=== PATIENT | female | born 1950 | race Hispanic/Latino ===

== ENCOUNTER 2018-01-31 16:23 | Observation (INO) | payer MEDICARE ==
[~2018-01-31] VITALS: Ht 157.5 cm; Wt 60.7 kg
[~2018-01-31 16:23] MED LIST: ASPI-1197 PO; CHOL200016 PO; GLIP10TA PO; INSLAN SQ; IRON1CAP31 PO; METF500T6 PO; OMEG100014 PO
[2018-01-31 17:16] LABS: BASOPHILS % (AUTO) 0.5 % (0.0-5.0); EOSINOPHILS % (AUTO) 1.7 % (0.0-8.0); LYMPHOCYTES % (AUTO) 16.3 % (21.0-51.0); MEAN CORPUSCULAR HEMOGLOBIN 31.5 pg (27.0-33.0); MEAN CORPUSCULAR HGB CONC 35.4 g/dL (32.0-36.0); MEAN CORPUSCULAR VOLUME 88.8 fL (79-99); NEUTROPHILS % (AUTO) 71.5 % (40.0-77.0); PLATELET COUNT (AUTO) 89 K/uL (130-400); RED CELL DISTRIBUTION WIDTH 14.6 % (11.0-15.5); WHITE BLOOD COUNT (AUTO) 7.3 K/uL (4.8-10.8)
[2018-01-31 17:26] LABS: CREATININE 0.6 mg/dL (0.5-1.5); POTASSIUM 3.7 mmol/L (3.5-5.1)
[2018-01-31 17:29] LABS: INR 1.07 (0.85-1.15); PARTIAL THROMBOPLASTIN TIME 30.4 SEC (26.3-35.5); PROTHROMBIN TIME 11.2 SEC (9.6-11.6)
[2018-01-31] MEDS ORDERED: ONDANSETRON HCL 4 MG/2 ML VIAL ONE (17:41)
[2018-01-31 17:42] LABS: ALBUMIN 3.6 g/dL (3.5-5.0); BILIRUBIN,TOTAL 0.7 mg/dL (0.2-1.0); CREATINE KINASE MB 0.7 ng/mL (0.5-3.6); TOTAL PROTEIN, SERUM 7.2 g/dL (6.0-8.3)
[2018-01-31] MEDS ORDERED: MORPHINE SULFATE 4 MG/1ML SYG ONE ×2 (17:42→19:45)
[2018-01-31] MEDS ORDERED: IOPAMIDOL-370 75 ML VIAL IV ONE (17:46)
[2018-01-31 19:01] LABS: APPEARANCE,URINE Clear (CLEAR); BILIRUBIN,URINE Negative (NEGATIVE); COLOR,URINE Yellow (YELLOW); GLUCOSE, URINE (UA) Negative (NEGATIVE); KETONES,URINE Negative (NEGATIVE); LEUKOCYTE ESTERASE ,URINE Trace (NEGATIVE); NITRATE,URINE Negative (NEGATIVE); OCCULT BLOOD,URINE Negative (NEGATIVE); PH,URINE 7.5 (5.0-8.0); PROTEIN,URINE Negative (NEGATIVE); UROBILINOGEN,URINE 0.2 mg/dL (0.2-1.0)
[2018-01-31] MEDS: ASPIRIN 81MG TAB.CHEW PO SCH (19:41)
[2018-01-31 19:43] LABS: RBC,URINE 0-1 /HPF (0-1)
[2018-01-31] MEDS ORDERED: MORPHINE SULFATE 4 MG/1ML SYG IVP PRN (19:45)
[2018-01-31 19:46] LABS: BACTERIA,URINE Rare /HPF (None Seen)
[2018-01-31 19:47] LABS: SQUAMOUS EPITHELIAL CELL,UR Few /HPF (0-2)
[2018-01-31] MEDS: NITROGLYCERIN 1GM/1 INCH PACKET TD SCH ×2 (20:00→22:00)
[2018-01-31] MEDS ORDERED: NITROGLYCERIN 1GM/1 INCH PACKET TD ONE (21:10)
[2018-01-31] MEDS ORDERED: ASPIRIN 81MG TAB.CHEW ONE (21:11)
[2018-01-31] MEDS ORDERED: POTASSIUM CHLORIDE 10% ELIXIR 20 MEQ/15 ML UDCUP PO PRN (22:00)
[2018-01-31] MEDS ORDERED: LIDOCAINE HCL-MPF 1% 2ML VIAL IVP PRN (22:00)
[2018-01-31] MEDS ORDERED: ONDANSETRON HCL 4 MG/2 ML VIAL IV PRN (22:00)
[2018-01-31] MEDS ORDERED: ACETAMINOPHEN 325 MG TAB PO PRN ×2 (22:00)
[2018-01-31] MEDS ORDERED: POTASSIUM CHLORIDE 20MEQ/100ML 100 ML IV PRN (22:00)
[2018-01-31] MEDS ORDERED: CEFTRIAXONE SODIUM 1 GM IVP SCH (22:00)
[2018-01-31] MEDS ORDERED: DEXTROSE 50%-WATER 50 ML DISP.SYRIN IV PRN (22:00)
[2018-01-31] MEDS ORDERED: POTASSIUM CHLORIDE 20 MEQ ERTAB PO PRN (22:00)
[2018-01-31] MEDS ORDERED: ZOLPIDEM TARTRATE 5 MG TAB PO PRN (22:00)
[2018-01-31] MEDS ORDERED: GLUCAGON 1MG KIT 1 MG ML IM PRN (22:00)
[2018-01-31] MEDS ORDERED: CEFTRIAXONE 1GM/D5W 50ML 50 ML IV SCH (22:00)
[2018-01-31] MEDS ORDERED: NITROGLYCERIN 0.4 MG SL TAB SL PRN (22:00)
[2018-01-31] MEDS ORDERED: LACTULOSE 20 GM/30 ML UDCUP PO PRN (22:00)
[2018-01-31 22:05] VITALS: BP 122/67
[2018-01-31 23:37] VITALS: BP 104/58
[2018-02-01] MEDS ORDERED: CIPR-1 PO (00:13)
[2018-02-01] MEDS ORDERED: INSLAN SQ (00:13)
[2018-02-01] MEDS ORDERED: AEC81 PO (00:13)
[2018-02-01] MEDS ORDERED: INSU100V SQ (00:13)
[2018-02-01] MEDS ORDERED: INSU100V IV (00:13)
[2018-02-01] MEDS ORDERED: METF500T6 PO (00:13)
[2018-02-01 01:21] LABS: CREATINE KINASE MB 0.6 ng/mL (0.5-3.6); CREATINE KINASE, TOTAL 57 U/L (21-232); MYOGLOBIN 24 ng/mL (10-92); TROPONIN I < 0.04 ng/mL (0.00-0.06)
[2018-02-01 03:53] VITALS: BP 84/52
[2018-02-01] MEDS: NITROGLYCERIN 1GM/1 INCH PACKET TD SCH ×2 (04:00→06:00)
[2018-02-01 05:42] LABS: HEMATOCRIT 30.4 % (36-48); MEAN CORPUSCULAR HEMOGLOBIN 30.5 pg (27.0-33.0); MEAN CORPUSCULAR HGB CONC 34.3 g/dL (32.0-36.0); MEAN CORPUSCULAR VOLUME 88.9 fL (79-99); PLATELET COUNT (AUTO) 89 K/uL (130-400); RED BLOOD CELL COUNT(AUTO) 3.42 MIL/uL (4.00-5.50); WHITE BLOOD COUNT (AUTO) 5.8 K/uL (4.8-10.8)
[2018-02-01 06:22] LABS: CARBON DIOXIDE 31 mmol/L (21-32); CHLORIDE 102 mmol/L (101-111); CHOLESTEROL 134 mg/dL (<200); CREATINE KINASE MB < 0.5 ng/mL (0.5-3.6); CREATINE KINASE, TOTAL 50 U/L (21-232); CREATININE 0.7 mg/dL (0.5-1.5); GLOMERULAR FILTR. RATE CALC 89 mL/min (>60); GLUCOSE,RANDOM 224 mg/dL (70-105); HDL CHOLESTEROL 35 mg/dL (35-85); LDL DIRECT 77 mg/dL (0-99); MYOGLOBIN 21 ng/mL (10-92); POTASSIUM 3.5 mmol/L (3.5-5.1); SODIUM SERUM 139 mmol/L (136-145); TRIGLYCERIDES 163 mg/dL (30-200); TROPONIN I < 0.04 ng/mL (0.00-0.06); UREA NITROGEN, BLOOD 7 mg/dL (7-18)
[2018-02-01 06:42] LABS: HEMOGLOBIN A1C 7.3 % (4.0-6.0)
[2018-02-01] MEDS ORDERED: INSULIN HUMULIN R 100 UNIT/ML 3ML SQ SCH (07:30)
[2018-02-01 07:32] VITALS: BP 102/56
[2018-02-01] MEDS: ASPIRIN 81MG TAB.CHEW PO SCH (08:43)
[2018-02-01] MEDS ORDERED: METOPROLOL TARTRATE 25 MG TAB PO SCH (09:00)
[2018-02-01] MEDS ORDERED: FAMOTIDINE 20MG TAB 20 MG TAB PO SCH (09:00)
[2018-02-01] MEDS ORDERED: ENOXAPARIN SODIUM 40 MG/0.4 ML SYRINGE SQ SCH (09:00)
== END 2018-02-01 10:35 | disposition home or self-care (01) ==
LOC: EDH 16:23 → EDHIP 19:26 → 2DH 21:50
PROVIDERS: ADMIT Internal Medicine; ATTEND Internal Medicine
DX: R07.89 Other chest pain (principal); R10.9 Unspecified abdominal pain; E11.65 Type 2 diabetes mellitus with hyperglycemia; E78.5 Hyperlipidemia, unspecified; D69.6 Thrombocytopenia, unspecified; D64.9 Anemia, unspecified; Z79.4 Long term (current) use of insulin; Z82.49 Family history of ischemic heart disease and other diseases of the circulatory system; Z90.710 Acquired absence of both cervix and uterus
CPT/HCPCS: 36415 ×2; 71045; 71275; 74174; 80048; 80053; 80061; 81001; 82550 ×3; 82553 ×3; 82948; 83036; 83690; 83874 ×3; 84443; 84484 ×3; 85025; 85027; 85610; 85730; 93005 ×3; 96372; 96374; 99291; A4218; G0378 ×15; J0696 ×2; J1815; J2270 ×2; J2405; Q9967

== ENCOUNTER → 2018-07-15 | Outpatient (CLI) | payer MEDICARE ==
[~2018-07-15] MED LIST changes: +AEC81 PO; -CHOL200016 PO; +CHOL200059 PO; +CIPR-1 PO; +INSU100V IV; +INSU100V SQ; +METF-444 PO; -METF500T6 PO
== END | disposition home or self-care (01) ==
LOC: RAH 08:46
PROVIDERS: ATTEND Internal Medicine Hematology & Oncology
DX: N20.0 Calculus of kidney (principal); K76.89 Other specified diseases of liver; R16.1 Splenomegaly, not elsewhere classified; Z95.2 Presence of prosthetic heart valve
CPT/HCPCS: 76700

== ENCOUNTER → 2018-09-19 | Outpatient (CLI) | payer MEDICARE ==
[~2018-09-19] MED LIST changes: +GADODIAMIDE 10 MMOL/20 ML ML IV ONE; +GADODIAMIDE 5 MMOL/10 ML VIAL 5 MMOL/10 ML ML IV ONE
== END | disposition home or self-care (01) ==
LOC: RAH 12:30
PROVIDERS: ATTEND Internal Medicine Hematology & Oncology
DX: R16.1 Splenomegaly, not elsewhere classified (principal); K76.89 Other specified diseases of liver
CPT/HCPCS: 74183; A9579

== ENCOUNTER 2019-10-13 21:31 | Observation (INO) | payer MEDICARE ==
[~2019-10-13] VITALS: Ht 157.5 cm; Wt 65.2 kg
[~2019-10-13 21:31] MED LIST changes: -GADODIAMIDE 10 MMOL/20 ML ML IV ONE; -GADODIAMIDE 5 MMOL/10 ML VIAL 5 MMOL/10 ML ML IV ONE
[2019-10-13 22:38] LABS: BASOPHILS % (AUTO) 0.9 % (0.0-5.0); EOSINOPHILS % (AUTO) 3.3 % (0.0-8.0); HEMATOCRIT 42.1 % (36-48); LYMPHOCYTES % (AUTO) 28.9 % (21.0-51.0); MEAN CORPUSCULAR HEMOGLOBIN 28.4 pg (27.0-33.0); MEAN CORPUSCULAR HGB CONC 31.4 g/dL (32.0-36.0); MEAN CORPUSCULAR VOLUME 90.5 fL (79-99); MONOCYTES % (AUTO) 10.4 % (3.0-13.0); NEUTROPHILS % (AUTO) 55.9 % (40.0-77.0); PLATELET COUNT (AUTO) 180 K/uL (130-400); RED BLOOD CELL COUNT(AUTO) 4.65 MIL/uL (4.00-5.50); RED CELL DISTRIBUTION WIDTH 15.1 % (11.0-15.5); WHITE BLOOD COUNT (AUTO) 6.7 K/uL (4.8-10.8)
[2019-10-13 23:00] LABS: INR 1.11 (0.85-1.15); PARTIAL THROMBOPLASTIN TIME 30.2 SEC (26.3-35.5); PROTHROMBIN TIME 11.6 SEC (9.6-11.6)
[2019-10-13 23:09] LABS: CREATININE 0.8 mg/dL (0.5-1.5); POTASSIUM 4.4 mmol/L (3.5-5.1)
[2019-10-13 23:14] LABS: ALBUMIN 2.7 g/dL (3.5-5.0); BILIRUBIN,TOTAL 1.1 mg/dL (0.2-1.0); TOTAL PROTEIN, SERUM 6.8 g/dL (6.0-8.3)
[2019-10-13] MEDS ORDERED: SODIUM CHLORIDE 0.9% 10 ML VIAL IVP PRN (23:45)
[2019-10-14] MEDS ORDERED: MORPHINE SULFATE 2 MG/ML 1ML SYG ONE (01:21)
[2019-10-14 02:30] VITALS: BP 128/69
[2019-10-14] MEDS ORDERED: FURO20TA4 PO ×2 (02:43)
[2019-10-14] MEDS ORDERED: IBUP-2076 PO ×2 (02:46)
[2019-10-14] MEDS ORDERED: FAMO20TA8 PO ×2 (02:46)
[2019-10-14] MEDS ORDERED: SPIR50TA5 PO ×2 (02:46)
[2019-10-14 05:13] LABS: HEMATOCRIT 39.5 % (36-48); MEAN CORPUSCULAR HGB CONC 31.1 g/dL (32.0-36.0); PLATELET COUNT (AUTO) 139 K/uL (130-400); RED BLOOD CELL COUNT(AUTO) 4.39 MIL/uL (4.00-5.50); RED CELL DISTRIBUTION WIDTH 14.9 % (11.0-15.5); WHITE BLOOD COUNT (AUTO) 5.6 K/uL (4.8-10.8)
[2019-10-14 05:28] LABS: INR 1.1 (0.85-1.15); PARTIAL THROMBOPLASTIN TIME 31.3 SEC (26.3-35.5); PROTHROMBIN TIME 11.5 SEC (9.6-11.6)
[2019-10-14 05:29] LABS: EOSINOPHILS % (MANUAL) 4 % (1-6); LYMPHOCYTES % (MANUAL) 20 % (22-44); MAN.DIFF COMMENT-IMPRESSION MANUAL DIFFERENTIAL; MONOCYTES % (MANUAL) 16 % (2-9); PLATELET MORPHOLOGY COMMENT ADEQUATE; SEGMENTED NEUTROPHILS % 60 % (40-70)
[2019-10-14 05:39] LABS: ALBUMIN 2.5 g/dL (3.5-5.0); BILIRUBIN,TOTAL 0.7 mg/dL (0.2-1.0); CREATININE 0.8 mg/dL (0.5-1.5); POTASSIUM 4.4 mmol/L (3.5-5.1); TOTAL PROTEIN, SERUM 6.1 g/dL (6.0-8.3)
[2019-10-14 07:00] VITALS: BP 131/74
--- NOTE | 2019-10-14 08:28 | NUR ---
CHART REVIWED, ACF GENERATED
[2019-10-14 11:00] VITALS: BP 100/54
--- NOTE | 2019-10-14 13:30 | NUR ---
PROCEDURE PATIENT SCHEDULED FOR PARACENTESIS. NO CURRENT H&P IN CHART OR ON HOSPITAL LINE AT THIS TIME. INFORMED M SHAYNA, KENNEL STAFF MEMBER CANNOT BE DONE UNTIL H&P PRESENT IN CHART.
--- NOTE | 2019-10-14 14:24 | NUR ---
RD NOTIFICATION DX: ASCITES, CIRRHOSIS. PENDING PARACENTESIS TODAY. DIET: NPO. LABS REVIEWED. MEDS REVIEWED. SKIN INTACT. LBM: 10/14. PT STATED HAVING POOR PO AND APPETITE PRIOR TO ADMISSION. SHE DOES NOT FOLLOW ANY PARTICULAR DIET AT HOME BUT SHE CLAIMS TO CHECK HER BG LEVELS REGULARLY. RD PROVIDED 2GMNA, DM AND FOOD SAFETY DIET AND NUTRITION EDUCATION. SHE VERBALIZED UNDERSTANDING. EDUCATION MATERIALS WERE PROVIDED. ADVANCE DIET TOLERATED TO 2GMNA, 75GMCCD NUTRITION EDUCATION COMPLETED Addendum: 10/14/19 at [address] Amended: Links added.
--- NOTE | 2019-10-14 14:28 | NUR ---
NUTRITION EDUCATION COMPLETED PT STATED HAVING POOR PO AND APPETITE PRIOR TO ADMISSION. SHE DOES NOT FOLLOW ANY PARTICULAR DIET AT HOME BUT SHE CLAIMS TO CHECK HER BG LEVELS REGULARLY. MIGUE PROVIDED 2GMNA, DM AND FOOD SAFETY DIET AND NUTRITION EDUCATION. SHE VERBALIZED UNDERSTANDING. EDUCATION MATERIALS WERE PROVIDED. Addendum: 10/14/19 at [address] Amended: Links added.
[2019-10-14] MEDS: MORPHINE SULFATE 2 MG/ML 1ML SYG IVP PRN ×2 (14:50→22:15)
--- NOTE | 2019-10-14 15:37 | NUR ---
INITIAL MET W PATIENT AND FAMILY AT BED SIDE SWETHA DAUGHTER LVES W PATIENT AND IWLL PROVIDE TRANSPORT. PT HAS NO DME, DRIVES, IS ACTIVE/INDP OF ADLS, AND HAS NO PROVIDER SERVICES. SEES LUIS ENRIQUE LEONG. DCP IS HOME . NO NEEDS ANTICIPATED Addendum: 10/14/19 at 1539 by ANDRES CHUNG RN CM Amended: Links added.
[2019-10-14 16:00] VITALS: BP 105/55
--- NOTE | 2019-10-14 17:13 | NUR ---
HAS BEEN NPO ALL DAY WAITING FOR US, PARACENTESIS AND CHECKING WITH IR TO SEE WHEN IT WILL BE DONE AND JUST NOW CHARGE NURSE TELLING ME WAS TOLD THEY WOULDN'T BE ABLE TO DO ITBECAUSE THERE WAS NO H/P DICTATED. CALLED OFFICE AND PACKAGE WORKER TOOK MESSAGE AND WILL PASS ONTO DR. KRAUS.
--- NOTE | 2019-10-14 17:30 | NUR ---
TALKED TO DR. KRAUS, NOT HAPPY, ASKED FO S PHONE #
[2019-10-14 20:00] VITALS: BP 124/67
[2019-10-15] VITALS (16 sets, daily range): BP systolic 98–158; BP diastolic 57–76
[2019-10-15] MEDS: MORPHINE SULFATE 2 MG/ML 1ML SYG IVP PRN ×2 (04:12→15:07)
--- NOTE | 2019-10-15 10:15 | NUR ---
U/S GD PARACENTESIS PROCEDURE PERFORMED BY DR Ariel MORGAN. PUNCTURE SITE RLQ AND PATIENT TOLERATED PROCEDURE WELL. TOTAL REMOVED 2.5 LITERS OF CLOUDY YELLOW FLUID. END OF PROCEDURE AT 1000. CATHETER REMOVED AND DRESSING APPLIED. NO BLEEDING NOTED. REPORT GIVEN TO Lourdes TILLMAN RN AND PATIENT TRANSPORTED TO [facility] VIA BED AT 1015. AAO X3 WITH NO C/O PAIN. SPECIMEN SENT TO LAB.
[2019-10-15 13:07] LABS: APPEARANCE BODY FLUID CLEAR (CLEAR); BODY FLUID WBC 219 /cu. mm.; COLOR,BODY FLUID YELLOW (LT YELLOW); SPECIMENTYPE,BODY FLUID ASCITES; TOTAL VOLUME,BODY FLUID 2500 mL
[2019-10-15 13:08] LABS: BODY FLUID RBC 2095 /cu. mm.
[2019-10-15 13:43] LABS: BF LYMPHOCYTE 76 %; BF MESOTHELIAL 10 %; BF MONOCYTE 10 %
== END 2019-10-15 18:20 | disposition home or self-care (01) ==
LOC: EDH 21:31 → EDHIP 22:10 → 3DH 10-14 01:59
PROVIDERS: ADMIT Internal Medicine Hematology & Oncology; ATTEND Internal Medicine Hematology & Oncology
DX: K74.60 Unspecified cirrhosis of liver (principal); R18.8 Other ascites; D69.6 Thrombocytopenia, unspecified; E78.5 Hyperlipidemia, unspecified; I10 Essential (primary) hypertension; K21.9 Gastro-esophageal reflux disease without esophagitis; E11.9 Type 2 diabetes mellitus without complications; E78.00 Pure hypercholesterolemia, unspecified; Z90.710 Acquired absence of both cervix and uterus; Z90.49 Acquired absence of other specified parts of digestive tract; Z79.82 Long term (current) use of aspirin; Z79.4 Long term (current) use of insulin; Z79.899 Other long term (current) drug therapy
CPT/HCPCS: 36415 ×2; 49083; 80053 ×2; 82948 ×4; 85025 ×2; 85610 ×2; 85730 ×2; 87071; 87205; 88108; 89051; 96374; 96376 ×2; 99284; A4215; G0378 ×3

== ENCOUNTER 2019-10-20 04:02 | Observation (INO) | payer MEDICARE ==
[~2019-10-20] VITALS: Ht 157.5 cm; Wt 68.0 kg
[~2019-10-20 04:02] MED LIST changes: +FAMO20TA8 PO; +FURO20TA4 PO; +IBUP-2076 PO; +SPIR50TA5 PO
[2019-10-20 05:25] LABS: BASOPHILS % (AUTO) 0.7 % (0.0-5.0); EOSINOPHILS % (AUTO) 2.9 % (0.0-8.0); HEMATOCRIT 40.3 % (36-48); LYMPHOCYTES % (AUTO) 23.3 % (21.0-51.0); MEAN CORPUSCULAR HEMOGLOBIN 28.4 pg (27.0-33.0); MEAN CORPUSCULAR HGB CONC 32.8 g/dL (32.0-36.0); MEAN CORPUSCULAR VOLUME 86.7 fL (79-99); MONOCYTES % (AUTO) 10.1 % (3.0-13.0); NEUTROPHILS % (AUTO) 62.5 % (40.0-77.0); PLATELET COUNT (AUTO) 164 K/uL (130-400); RED BLOOD CELL COUNT(AUTO) 4.65 MIL/uL (4.00-5.50); RED CELL DISTRIBUTION WIDTH 15.2 % (11.0-15.5)
[2019-10-20 05:38] LABS: INR 1.16 (0.85-1.15); PARTIAL THROMBOPLASTIN TIME 31.3 SEC (26.3-35.5); PROTHROMBIN TIME 12.1 SEC (9.6-11.6)
[2019-10-20 05:52] LABS: CREATININE 0.7 mg/dL (0.5-1.5)
[2019-10-20 05:58] LABS: ALBUMIN 2.6 g/dL (3.5-5.0); BILIRUBIN,TOTAL 1.2 mg/dL (0.2-1.0); TOTAL PROTEIN, SERUM 6.3 g/dL (6.0-8.3)
[2019-10-20] MEDS ORDERED: ONDANSETRON HCL 4 MG/2 ML VIAL IVP PRN (06:45)
[2019-10-20 08:51] VITALS: BP 130/70
--- NOTE | 2019-10-20 10:10 | NUR ---
U/S GD PARACENTESIS PROCEDURE PERFORMED BY DR. MORGAN. PUNCTURE SITE RIGHT UPPER QUADRANT OF ABDOMEN AND PATIENT TOLERATED PROCEDURE WELL. TOTAL REMOVED 3.9 LITERS OF CLOUDY STRAW COLORED ASCITES FLUID. END OF PROCEDURE AT 1025. CATHETER REMOVED AND DRESSING APPLIED. NO BLEEDING NOTED. PT DID NOT MEET [facility]. REPORT CALLED TO [facility]. PT TRANSPORTED TO [facility] VIA W/C, STABLE, AAO X3 WITH NO C/O PAIN. DAUGHTER ESCORTING PATIENT BACK TO ROOM.
[2019-10-20 11:34] VITALS: BP 99/54
[2019-10-20 11:45] VITALS: BP 113/57
[2019-10-20 12:00] VITALS: BP 118/76
[2019-10-20 12:15] VITALS: BP 104/69
[2019-10-20] MEDS ORDERED: HYDROCODONE/ACETAMINOPHEN 5/325 MG TAB PO PRN ×2 (12:15)
[2019-10-20] MEDS ORDERED: HYDROCODONE/ACETAMINOPHEN 5/325 MG TAB ONE (12:17)
--- NOTE | 2019-10-20 13:40 | NUR ---
CM NOTE PATIENT DISCHARGED HOME, NO NEEDS VERBALIZED BY PRIMARY NURSE. Addendum: 10/20/19 at 1341 by MATEUS HESS RN CM Amended: Links added.
--- NOTE | 2019-10-20 14:07 | NUR ---
PT D/C HOME USING TEACH BACK TECHNIQUE RE; NEW MEDS, HOME MEDS, S/S TO WATCH FOR AND WHEN TO CALL 911 OR MD. FOLLOW UP WITH YOUR PRIMARY DOCTOR IN 2-4 DAYS. CALL TO SET UP AN APPOINTMENT OR MAY GO A WALK IN. MONITOR RIGHT LOWER ABDOMINAL SITE FOR SIGNS OF BLEEDING OR INFLAMMATION INCLUDING BLEEDING. LEAVE SITE COVERED FOR 24 HOURS. IF SHORTNESS OF BREATH OR CHEST PAIN, OR BLEEDING TO RIGHT LOWER ABDOMINAL SITE OF PARACENTESIS APPLY PRESSURE AND CALL 911. IF FEVERS GREATER THAN 101.0 CALL YOUR PRIMARY DOCTOR COULD MEAN THERE IS INFECTIONS IN YOUR ABDOMINAL CAVITY. IV OUT INTACT, NO BLEEDING FROM IV OR RLQ SITE OF PARACENTESIS. AAOX3, DENIES ANY DISTRESS, STATES FEELS STRONG TO GO HOME.
== END 2019-10-20 15:05 | disposition home or self-care (01) ==
LOC: EDH 04:02 → EDHIP 06:20 → 4CH 08:20
PROVIDERS: ADMIT Internal Medicine Hematology & Oncology; ATTEND Internal Medicine Hematology & Oncology
DX: K74.60 Unspecified cirrhosis of liver (principal); R18.8 Other ascites; E78.00 Pure hypercholesterolemia, unspecified; C22.9 Malignant neoplasm of liver, not specified as primary or secondary; Z90.49 Acquired absence of other specified parts of digestive tract; Z90.710 Acquired absence of both cervix and uterus; E11.9 Type 2 diabetes mellitus without complications; Z79.4 Long term (current) use of insulin
CPT/HCPCS: 36415; 49083; 80053; 82140; 83690; 85025; 85610; 85730; 93005; 99284; A4215; G0378 ×9